=== PATIENT | male | born 1945 | race Hispanic/Latino ===

== ENCOUNTER 2021-06-10 15:17 | Inpatient (IN) | payer MEDICARE ==
[~2021-06-10] VITALS: Ht 157.5 cm; Wt 63.4 kg
[2021-06-10] MEDS ORDERED: HYDROCHLOROTHIA25 MG PO (15:38)
[2021-06-10] MEDS ORDERED: LISINOPRIL5 MG PO (15:38)
[2021-06-10] MEDS ORDERED: IBUPROFEN 400 MG TAB PO ONE (15:45)
[2021-06-10] MEDS ORDERED: SODIUM CHLORIDE 0.9% 1000ML 1,000 ML IV STA (15:45)
[2021-06-10] MEDS ORDERED: ONDANSETRON HCL INJ 2MG/ML 2ML 2 MG/ML VIAL IV STA (15:45)
[2021-06-10] MEDS ORDERED: SODIUM CHLORIDE 0.9% 1000ML 1,000 ML ONE ×2 (16:12→17:36)
[2021-06-10] MEDS ORDERED: IBUPROFEN 400 MG TAB ONE (16:12)
[2021-06-10] MEDS ORDERED: ONDANSETRON HCL INJ 2MG/ML 2ML 2 MG/ML VIAL ONE (16:12)
[2021-06-10] MEDS ORDERED: SODIUM CHLORIDE FLUSH 10 ML SYR INJ PRN (17:15)
[2021-06-10] MEDS ORDERED: ONDANSETRON HCL INJ 2MG/ML 2ML 2 MG/ML VIAL IV PRN (17:15)
[2021-06-10] MEDS ORDERED: POTASSIUM CHLORIDE 20 MEQ TAB CR PO ONE ×2 (17:30→17:49)
[2021-06-10] MEDS: SODIUM CHLORIDE 0.9% 1000ML 1,000 ML IV SCH (17:30)
[2021-06-10] MEDS ORDERED: ACETAMINOPHEN 325 MG TAB PO ONE (17:45)
[2021-06-10] MEDS ORDERED: ACETAMINOPHEN 325 MG TAB ONE (17:50)
[2021-06-10] MEDS ORDERED: LEVOFLOXACIN 500MG/D5W 100ML 100 ML IV ONE (18:45)
[2021-06-10 19:30] VITALS: BP 109/40
[2021-06-10 21:12] VITALS: BP 109/40
[2021-06-10] MEDS ORDERED: ATORVASTATIN CA20 MG PO (22:56)
[2021-06-10] MEDS ORDERED: ERGOCALCIFEROL1 GM (22:58)
[2021-06-10] MEDS ORDERED: VITAMIN B-121000 MC2 PO (22:59)
[2021-06-11] VITALS (10 sets, daily range): BP systolic 110–151; BP diastolic 42–69
[2021-06-11] MEDS: SODIUM CHLORIDE 0.9% 1000ML 1,000 ML IV SCH ×2 (00:52→11:50)
[2021-06-11 07:40] LABS: BASOPHILS % 0.4 % (0.0-1.0); EOSINOPHILS # (AUTO) 0.1 (0.0-0.4); EOSINOPHILS % 0.9 % (0.0-6.0); HEMATOCRIT 39.8 % (38.2-49.6); HEMOGLOBIN 13.1 g/dL (14.0-18.0); LYMPHOCYTES # (AUTO) 0.4 (1.0-3.2); MEAN CORPUSCULAR HEMOGLOBIN 28.7 pg (28-32); MEAN CORPUSCULAR HGB CONC 32.9 g/dL (31-35); MEAN CORPUSCULAR VOLUME 87.3 fL (81-99); MONOCYTES # (AUTO) 0.1 (0.2-0.8); MONOCYTES % 1.4 % (4.4-11.3); NEUTROPHILS # (AUTO) 9.5 (2.1-6.9); NEUTROPHILS % 92.8 % (38.7-80.0); PLATELET COUNT 196 x10e3/uL (140-360); RED BLOOD COUNT 4.56 x10e6/uL (4.3-5.7); RED CELL DISTRIBUTION WIDTH 14.2 % (11.7-14.4)
[2021-06-11 07:55] LABS: ANION GAP 16.4 mmol/L (8-16); CALCIUM 7.6 mg/dL (8.4-10.2); CREATININE, SERUM 2.11 mg/dL (0.72-1.25); POTASSIUM 3.4 mmol/L (3.5-5.1)
[2021-06-11] MEDS ORDERED: ACETAMINOPHEN 325 MG TAB PO PRN (11:15)
[2021-06-11] MEDS: LISINOPRIL 20 MG TAB PO SCH ×2 (11:30→17:26)
[2021-06-11] MEDS ORDERED: DICYCLOMINE HCL 10 MG CAP PO PRN (11:45)
[2021-06-11] MEDS: CHOLESTYRAMINE 4 GM PACKET PO SCH ×2 (13:52→21:58)
[2021-06-11] MEDS: METRONIDAZOLE 500 MG TAB PO SCH ×2 (13:52→21:58)
[2021-06-11] MEDS ORDERED: METRONIDAZOLE 500MG/NS 100ML 100 ML IV SCH (14:00)
[2021-06-11] MEDS: ENOXAPARIN SOD INJ 40 MG/0.4 ML SYR SC SCH (17:26)
[2021-06-11] MEDS ORDERED: ATORVASTATIN 20 MG TAB PO SCH (21:00)
[2021-06-12] VITALS (7 sets, daily range): BP systolic 102–159; BP diastolic 49–88
[2021-06-12] MEDS: METRONIDAZOLE 500 MG TAB PO SCH ×3 (05:40→21:56)
[2021-06-12 06:50] LABS: BASOPHILS % 0.5 % (0.0-1.0); HEMATOCRIT 34.4 % (38.2-49.6); HEMOGLOBIN 11.3 g/dL (14.0-18.0); LYMPHOCYTES # (AUTO) 0.6 (1.0-3.2); LYMPHOCYTES % 9.5 % (18.0-39.1); MEAN CORPUSCULAR HEMOGLOBIN 28.8 pg (28-32); MEAN CORPUSCULAR HGB CONC 32.8 g/dL (31-35); MEAN CORPUSCULAR VOLUME 87.8 fL (81-99); MONOCYTES # (AUTO) 0.4 (0.2-0.8); MONOCYTES % 6.5 % (4.4-11.3); PLATELET COUNT 166 x10e3/uL (140-360); RED BLOOD COUNT 3.92 x10e6/uL (4.3-5.7); RED CELL DISTRIBUTION WIDTH 14.2 % (11.7-14.4)
[2021-06-12 07:24] LABS: ALBUMIN 2.7 g/dL (3.5-5.0); ALBUMIN/GLOBULIN RATIO 0.9 (0.8-2.0); ANION GAP 12.2 mmol/L (8-16); CALCIUM 7.5 mg/dL (8.4-10.2); CREATININE, SERUM 1.13 mg/dL (0.72-1.25); POTASSIUM 3.2 mmol/L (3.5-5.1)
[2021-06-12 07:39] LABS: BAND NEUTROPHILS % (MANUAL) 5 %; EOSINOPHILS % (MANUAL) 1 % (0-7); LYMPHOCYTES % (MANUAL) 8 % (19-48); MONOCYTES % (MANUAL) 4 % (3.4-9.0); NEUTROPHILS % (MANUAL) 82 % (40-74)
[2021-06-12 07:40] LABS: PLATELET ESTIMATE ADEQUATE; PLATELET MORPHOLOGY COMMENT FEW LARGE; RBC MORPHOLOGY COMMENT NORMAL
[2021-06-12] MEDS: LISINOPRIL 20 MG TAB PO SCH (09:00)
[2021-06-12] MEDS: SODIUM CHLORIDE 0.9% 1000ML 1,000 ML IV SCH ×3 (09:09→21:54)
[2021-06-12] MEDS: CHOLESTYRAMINE 4 GM PACKET PO SCH ×3 (09:10→21:56)
[2021-06-12] MEDS: CYANOCOBALAMIN 1,000 MCG TAB PO SCH (09:11)
[2021-06-12] MEDS ORDERED: POTASSIUM CHLORIDE 20 MEQ TAB CR PO ONE (11:15)
[2021-06-12] MEDS: ENOXAPARIN SOD INJ 40 MG/0.4 ML SYR SC SCH (16:59)
[2021-06-13] MEDS: SODIUM CHLORIDE 0.9% 1000ML 1,000 ML IV SCH
[2021-06-13 00:18] VITALS: BP 119/62
[2021-06-13 04:50] VITALS: BP 122/57
[2021-06-13] MEDS: METRONIDAZOLE 500 MG TAB PO SCH ×3 (06:32→22:00)
[2021-06-13 08:00] LABS: ALBUMIN 2.5 g/dL (3.5-5.0); ALBUMIN/GLOBULIN RATIO 0.9 (0.8-2.0); ANION GAP 10.6 mmol/L (8-16); CALCIUM 8.3 mg/dL (8.4-10.2); CREATININE, SERUM 0.88 mg/dL (0.72-1.25); POTASSIUM 3.6 mmol/L (3.5-5.1)
[2021-06-13 08:16] VITALS: BP 125/64
[2021-06-13] MEDS: CYANOCOBALAMIN 1,000 MCG TAB PO SCH (08:56)
[2021-06-13] MEDS: CHOLESTYRAMINE 4 GM PACKET PO SCH ×3 (08:56→20:37)
[2021-06-13] MEDS: LISINOPRIL 20 MG TAB PO SCH (08:56)
[2021-06-13] MEDS ORDERED: MAGNESIUM SULF 1GRAM/DEXTROSE 100 ML IV ONE (11:30)
[2021-06-13 11:55] VITALS: BP 136/58
[2021-06-13] MEDS ORDERED: POTASSIUM CHLORIDE 20 MEQ TAB CR PO ONE (12:30)
[2021-06-13] MEDS: ENOXAPARIN SOD INJ 40 MG/0.4 ML SYR SC SCH (16:37)
[2021-06-13 19:50] VITALS: BP 120/67
[2021-06-14 04:00] VITALS: BP 132/53
[2021-06-14] MEDS: METRONIDAZOLE 500 MG TAB PO SCH ×2 (05:31→14:20)
[2021-06-14 05:49] LABS: BASOPHILS % 0.7 % (0.0-1.0); EOSINOPHILS # (AUTO) 0.1 (0.0-0.4); EOSINOPHILS % 2.4 % (0.0-6.0); HEMATOCRIT 31.1 % (38.2-49.6); HEMOGLOBIN 10.3 g/dL (14.0-18.0); LYMPHOCYTES # (AUTO) 1.3 (1.0-3.2); LYMPHOCYTES % 22.5 % (18.0-39.1); MEAN CORPUSCULAR HEMOGLOBIN 28.9 pg (28-32); MEAN CORPUSCULAR HGB CONC 33.1 g/dL (31-35); MEAN CORPUSCULAR VOLUME 87.1 fL (81-99); MONOCYTES # (AUTO) 0.9 (0.2-0.8); NEUTROPHILS # (AUTO) 3.3 (2.1-6.9); NEUTROPHILS % 57.7 % (38.7-80.0); PLATELET COUNT 160 x10e3/uL (140-360); RED BLOOD COUNT 3.57 x10e6/uL (4.3-5.7); RED CELL DISTRIBUTION WIDTH 14.2 % (11.7-14.4)
[2021-06-14 06:08] LABS: ALBUMIN 2.4 g/dL (3.5-5.0); ALBUMIN/GLOBULIN RATIO 0.9 (0.8-2.0); ANION GAP 10.4 mmol/L (8-16); CALCIUM 7.6 mg/dL (8.4-10.2); CREATININE, SERUM 0.78 mg/dL (0.72-1.25); POTASSIUM 3.4 mmol/L (3.5-5.1)
[2021-06-14 06:27] LABS: THYROID STIMULATING HORMONE 2.426 uIU/mL (0.350-4.940)
[2021-06-14 07:36] VITALS: BP 132/53
[2021-06-14] MEDS: SODIUM CHLORIDE 0.9% 1000ML 1,000 ML IV SCH (08:45)
[2021-06-14] MEDS: CHOLESTYRAMINE 4 GM PACKET PO SCH (08:53)
[2021-06-14] MEDS: CYANOCOBALAMIN 1,000 MCG TAB PO SCH (08:53)
[2021-06-14] MEDS ORDERED: LISINOPRIL 2.5 MG TAB PO SCH (09:00)
[2021-06-14] MEDS ORDERED: MAGNESIUM SULFATE 2GM/50ML 50 ML IV ONE (11:30)
[2021-06-14 12:05] VITALS: BP 123/50
[2021-06-14] MEDS: POTASSIUM CHLORIDE 20 MEQ TAB CR PO SCH ×2 (12:18→14:21)
[2021-06-14] MEDS ORDERED: LISINOPRIL5 MG PO (14:47)
[2021-06-14] MEDS ORDERED: ONDANSETRON HCL 4 MG ORAL DISINTEGRATING TAB PO PRN (15:30)
== END 2021-06-14 16:13 | disposition home or self-care (01) | DRG 683 ==
LOC: FSED 15:47 → MED/SURG2 20:26 → INTOOBSV 06-12 10:48 → OBSVTOIN 06-12 10:48
PROVIDERS: ADMIT Internal Medicine; ATTEND Internal Medicine
DX: N17.9 Acute kidney failure, unspecified (principal); E87.1 Hypo-osmolality and hyponatremia; A08.4 Viral intestinal infection, unspecified; R00.0 Tachycardia, unspecified; E86.0 Dehydration; E87.6 Hypokalemia; I10 Essential (primary) hypertension; E78.00 Pure hypercholesterolemia, unspecified; D64.9 Anemia, unspecified; Z82.49 Family history of ischemic heart disease and other diseases of the circulatory system; I49.3 Ventricular premature depolarization; Z20.822 Contact with and (suspected) exposure to COVID-19
CPT/HCPCS: 36415; 71045; 74176; 80048; 80053; 80076; 81003; 84443; 85025; 87400; 87493; 93005; 93306; 94799; 96374; 99251; 99284; G0378; J1650; J2405; J3475; J7030; U0002